=== PATIENT | male | born 1970 ===

== ENCOUNTER 2017-01-29 15:58 | Emergency (ER) | payer OTHER ==
[2017-01-29] MEDS ORDERED: Absorbable Gelatin Sponge Size 12-7 ONE (16:04)
[2017-01-29 16:09] VITALS: BMI 27.4
[2017-01-29] MEDS ORDERED: TDAP Vaccine 0.5 mL Syr IM ONE (16:09)
[2017-01-29] MEDS ORDERED: Absorbable Gelatin Sponge Size 12-7 TP STA (16:09)
--- NOTE | 2017-01-29 16:17 | ED PDOC ---
Upper Extremity Pain/Injury Time Seen by Provider: 01/29/17 16:08 Chief Complaint (Provider): Injury to right hand History Per: Patient History/Exam Limitations: no limitations Onset/Duration Of Symptoms: Mins Current Symptoms Are (Timing): Still Present Quality: "Pain" Severity: Moderate Additional History Per: Patient Additional Complaint(s): The pt is a 46yo male, presents to the ED for evaluation of laceration to his right index finger - pt reports he accidentally injured his right index finger with a knife at home. pt reports he is unsure of his tetanus. Pt denies any numbness or tingling to his hands. At preset, offers no additional medical complaints. Past Medical History Reviewed: Historical Data, Nursing Documentation, Vital Signs - Medical History PMH: No Chronic Diseases - Surgical History Surgical History: No Surg Hx - Family History Family History: States: Unknown Family Hx - Allergies Allergies/Adverse Reactions: Allergies Allergy/AdvReac Type Severity Reaction Status Date / Time No Known Allergies Allergy Verified 01/29/17 16:09 Review of Systems ROS Statement: Except As Marked, All Systems Reviewed And Found Negative Musculoskeletal: Positive for: Hand Pain (lacerationg ot right 2nd digit) Neurological: Negative for: Weakness, Numbness Physical Exam - Reviewed Nursing Documentation Reviewed: Yes Vital Signs Reviewed: Yes - Physical Exam Appears: Positive for: Well, Non-toxic, No Acute Distress Head Exam: Positive for: ATRAUMATIC, NORMAL INSPECTION, NORMOCEPHALIC Skin: Positive for: Normal Color Eye Exam: Positive for: Normal appearance Cardiovascular/Chest: Positive for: Regular Rate, Rhythm Respiratory: Negative for: Respiratory Distress Extremity: Positive for: Normal ROM, Other (superficial avulsion on distal tip of 2nd digit, no nail involvement. non-pulsatile bleeding present.). Negative for: Deformity Medical Decision Making Medical Decision Making: Time: 1620 Impression: Avulsion laceration to right 2nd digit Plan: -- TDAP booster -- Gel foam dressing --Reassess Scribe Attestation: All records were documented by Jaymie Sellers, acting as a Scribe for BALDEMAR Ann. Provider Scribe Attestation: All medical record entries made by the Scribe were at my direction and personally dictated by me. I have reviewed the chart and agree that the record accurately reflects my personal performance of the history, physical exam, medical decision making, and the department course for this patient. I have also personally directed, reviewed, and agree with the discharge instructions and disposition. Disposition - Clinical Impression Clinical Impression: Finger avulsion - Patient ED Disposition Is Patient to be Admitted: No - Disposition Disposition: Routine/Home Disposition Time: 16:38 Condition: STABLE Additional Instructions: Keep wound clean and dry. Instructions: Skin Avulsion (ED)
== END 2017-01-29 16:39 | disposition home or self-care (01) ==
LOC: H.ER 15:58
DX: S61.310A Laceration without foreign body of right index finger with damage to nail, initial encounter (principal); W26.0XXA Contact with knife, initial encounter; Y92.009 Unspecified place in unspecified non-institutional (private) residence as the place of occurrence of the external cause; Z23 Encounter for immunization

== ENCOUNTER 2018-05-09 13:51 | Emergency (ER) | payer OTHER ==
[2018-05-09 13:51] VITALS: BMI 27.4
[2018-05-09 15:16] VITALS: RESP 16; O2SAT 97
--- NOTE | 2018-05-09 15:41 | ED PDOC ---
HPI: General Adult Time Seen by Provider: 05/09/18 15:18 Chief Complaint (Nursing): Abnormal Skin Integrity Chief Complaint (Provider): laceration History Per: Patient Additional Complaint(s): 47 y/o male presents to the ED for a left ankle laceration sustained just prior to arrival. Patient states he cut his left lower leg on a metal fence. Patient also reports tetanus vaccinations are up to date. He is mild pain to affected area but denies any numbness or tingling. PMD: None Past Medical History Reviewed: Historical Data, Nursing Documentation, Vital Signs Vital Signs: Last Vital Signs Temp 98.6 F 05/09/18 15:15 Pulse 58 L 05/09/18 15:15 Resp 16 05/09/18 15:15 BP 122/73 05/09/18 15:15 Pulse Ox 97 05/09/18 15:44 - Medical History PMH: No Chronic Diseases - Surgical History Surgical History: No Surg Hx - Family History Family History: States: No Known Family Hx - Living Arrangements Living Arrangements: With Family - Social History Current smoker - smoking cessation education provided: No Alcohol: Occasional Drugs: Denies - Immunization History Hx Tetanus Toxoid Vaccination: Yes (last booster was one year ago) - Allergies Allergies/Adverse Reactions: Allergies Allergy/AdvReac Type Severity Reaction Status Date / Time No Known Allergies Allergy Verified 01/29/17 16:09 Review of Systems ROS Statement: Except As Marked, All Systems Reviewed And Found Negative Musculoskeletal: Positive for: Foot Pain (Laceration to the Left Ankle ) Physical Exam - Reviewed Nursing Documentation Reviewed: Yes Vital Signs Reviewed: Yes - Physical Exam Appears: Positive for: Well, No Acute Distress Head Exam: Positive for: ATRAUMATIC, NORMOCEPHALIC Skin: Positive for: Normal Color. Negative for: Rash Eye Exam: Positive for: Normal appearance Cardiovascular/Chest: Positive for: Regular Rate, Rhythm Respiratory: Positive for: Normal Breath Sounds Extremity: Positive for: Other (2 cm laceration to medial left ankle with minimal active bleeding. Neurovascularly intact, normal distal sensation) Neurologic/Psych: Positive for: Alert, Oriented. Negative for: Motor/Sensory Deficits - ECG O2 Sat by Pulse Oximetry: 97 (RA) Pulse Ox Interpretation: Normal Medical Decision Making Medical Decision Making: Time: 1543 Impression: Left Ankle Laceration Plan: -- Laceration Repair See procedure note, patient given wound care instructions. Scribe Attestation: Documented by Lilian Gastelum, acting as a scribe for Ara Caraballo PA-C. Provider Scribe Attestation: All medical record entries made by the Scribe were at my direction and personally dictated by me. I have reviewed the chart and agree that the record accurately reflects my personal performance of the history, physical exam, medical decision making, and the department course for this patient. I have also personally directed, reviewed, and agree with the discharge instructions and disposition. Procedures - Laceration/Wound Repair Left ankle Wound Length (cm): 2 Wound Explored: clean Betadine Prep?: Yes Anesthesia: Lidocaine w/ Epi Volume Anesthetic (ccs): 8 Wound Debrided: minimal Wound Repaired With: Sutures Suture Size/Type: 4:0, nylon (Continuous uninterrupted sutures) Layer Closure?: No Wound Complexity: Simple Sterile Dressing Applied?: Yes Disposition - Clinical Impression Clinical Impression: Laceration of ankle - Patient ED Disposition Is Patient to be Admitted: No Counseled Patient/Family Regarding: Diagnosis, Need For Followup - Disposition Referrals: [facility] [Outside] Disposition: Routine/Home Disposition Time: 16:45 Condition: STABLE Additional Instructions: Wash wound daily with soap and water. Apply bacitracin once per day only. Cover wound while outside but air wound out several hours per day to avoid excess moisture. Take [id number] Tylenol or Advil for pain as needed. Wound check 2-3 days, suture removal 10-14 days. Instructions: Laceration Repair With Stitches (DC) Forms: EpiEP (Urdu)
[2018-05-09] MEDS ORDERED: Lidocaine 1% w Epi 1:100,000 Inj ONE (15:53)
[2018-05-09 17:14] VITALS: BP 126/79; PULSE 83; TEMP 97.9
== END 2018-05-09 17:15 | disposition home or self-care (01) ==
LOC: H.ER 13:51
DX: S91.012A Laceration without foreign body, left ankle, initial encounter (principal); W26.8XXA Contact with other sharp object(s), not elsewhere classified, initial encounter; Y92.89 Other specified places as the place of occurrence of the external cause